=== PATIENT | female | born 1990 | race African-American/Black ===

== ENCOUNTER 2017-02-12 10:29 | Emergency (ER) | payer OTHER ==
[2017-02-12 10:40] LABS: URINE SOURCE CLEAN CATCH
[2017-02-12 10:49] LABS: URINE APPEARANCE CLEAR; URINE BILIRUBIN NEG (NEG); URINE BLOOD 1+ (NEG); URINE COLOR YELLOW; URINE GLUCOSE NEG (NEG); URINE KETONE TRACE (NEG); URINE LEUKOCYTE ESTERASE 1+ (NEG); URINE NITRATE NEG (NEG); URINE PROTEIN NEG (NEG); URINE SPECIFIC GRAVITY 1.025 (1.003-1.035)
[2017-02-12 10:51] LABS: CULTURE INDICATED? YES; URINE BACTERIA AUWI 1+ (NEGATIVE); URINE SQUAMOUS EPITHELIAL CELL MOD /[HPF]
[2017-02-14 02:18] LABS: CHLAMYDIA TRACH Not Detected (Not Detected); N GONOR Not Detected (Not Detected)
== END 2017-02-12 11:48 | disposition home or self-care (01) ==
LOC: CFTX 10:29
PROVIDERS: Physician Assistant
DX: N30.00 Acute cystitis without hematuria (principal); I10 Essential (primary) hypertension; J45.909 Unspecified asthma, uncomplicated; F32.9 Major depressive disorder, single episode, unspecified; Z20.2 Contact with and (suspected) exposure to infections with a predominantly sexual mode of transmission
CPT/HCPCS: 81003; 84703; 87086; 87491; 87591; 87808; 87905; 99284

== ENCOUNTER 2017-04-01 17:38 | Emergency (ER) | payer OTHER | END 2017-04-01 20:20 | disposition left against medical advice (07) | LOC: CFTX 17:38 → CED 17:38 → CFTX 20:20 | DX: Z53.21 Procedure and treatment not carried out due to patient leaving prior to being seen by health care provider (principal) ==